=== PATIENT | female | born 1930 | race Caucasian/White ===

== ENCOUNTER → 2016-10-15 | Outpatient (CLI) | payer MEDICARE, OTHER ==
[2016-10-15 14:09] LABS: BASOPHILS % (AUTO) 0.4 % (0.0-2.0); EOSINOPHILS % (AUTO) 4.7 % (1.0-6.0); HEMATOCRIT 37.1 % (36-46); HEMOGLOBIN 12.6 g/dL (12.0-16.0); LYMPHOCYTES # (AUTO) 2.4 K/uL (1.0-4.8); LYMPHOCYTES % (AUTO) 25.1 % (22.0-44.0); MEAN CORPUSCULAR HEMOGLOBIN 28.2 pg (26.0-34.0); MEAN CORPUSCULAR VOLUME 83 fL (80-100); MONOCYTES # (AUTO) 0.9 K/uL (0.1-1.0); MONOCYTES % (AUTO) 9.6 % (2.0-9.0); NEUTROPHILS # (AUTO) 5.7 K/uL (1.8-7.7); NEUTROPHILS % (AUTO) 60.2 % (40.0-70.0); PLATELET COUNT (AUTO) 358 K/uL (150-450); RED BLOOD CELL COUNT(AUTO) 4.47 MIL/uL (4.00-5.20); RED CELL DISTRIBUTION WIDTH 14.3 % (11.5-14.5); WHITE BLOOD COUNT (AUTO) 9.5 K/uL (4.5-11.0)
[2016-10-15 14:10] LABS: CREATININE 1.06 mg/dL (0.60-1.30)
[2016-10-15 14:12] LABS: APPEARANCE,URINE CLOUDY (CLEAR); GLUCOSE, URINE (UA) NEGATIVE (NEGATIVE); KETONES,URINE NEGATIVE (NEGATIVE); OCCULT BLOOD,URINE NEGATIVE (NEGATIVE); PH,URINE 6.5 (5.0-8.0); PROTEIN,URINE NEGATIVE (NEGATIVE)
[2016-10-15 14:17] LABS: ADD UA MICROSCOPIC YES; LEUKOCYTE ESTERASE ,URINE SMALL (NEGATIVE); RBC,URINE 0-2 /HPF (0-2); RENAL EPITHELIAL CELLS,URINE Few /LPF (None Seen); SQUAMOUS EPITHELIAL CELL,UR Few /LPF (None Seen)
[2016-10-15 14:18] LABS: INR 0.9 (0.9-1.1)
== END | disposition home or self-care (01) ==
LOC: MSR 12:54
DX: M20.12 Hallux valgus (acquired), left foot (principal); M20.11 Hallux valgus (acquired), right foot; M20.42 Other hammer toe(s) (acquired), left foot; M20.41 Other hammer toe(s) (acquired), right foot; Z79.01 Long term (current) use of anticoagulants
CPT/HCPCS: 82565; 84520; 93005

== ENCOUNTER 2016-10-22 05:41 | Day surgery (SDC) | payer MEDICARE, OTHER ==
[~2016-10-22] VITALS: Ht 142.2 cm; Wt 55.9 kg
[~2016-10-22 05:41] MED LIST: AMLO-512 PO; ASPI-1093 PO; ATEN50TA PO; MULT-248 PO; OMEG100019 PO; OMEP20 PO; PRAV40 PO; TELM1TAB6 PO
[2016-10-22] MEDS ORDERED: RINGERS SOLUTION,LACTATED 1,000 ML IV ONE ×2 (05:43→06:00)
[2016-10-22] MEDS ORDERED: POVIDONE-IODINE 30 GM OINTMENT TP ONE (06:44)
[2016-10-22] MEDS ORDERED: LIDOCAINE HCL/PF 2% 5 ML VIAL ONE (06:44)
[2016-10-22] MEDS ORDERED: BUPIVACAINE HCL/PF 0.5% 30 ML VIAL ONE (06:45)
[2016-10-22] MEDS ORDERED: SODIUM CHLORIDE 0.9% 1,000 ML IV ONE (08:10)
[2016-10-22] MEDS ORDERED: MEPERIDINE-PF 25 MG/ML SYRINGE IVP PRN (08:15)
[2016-10-22] MEDS ORDERED: FentaNYL CITRATE-PF 100 MCG/2 ML VIAL IVP PRN (08:15)
[2016-10-22] MEDS ORDERED: HYDROmorphone 2 MG/ML SYRINGE IVP PRN (08:15)
[2016-10-22] MEDS ORDERED: OXYGEN THERAPY IH SCH (08:15)
[2016-10-22] MEDS ORDERED: GLYCOPYRROLATE 0.2 MG/ML VIAL IM ONE (12:00)
[2016-10-22] MEDS ORDERED: METOCLOPRAMIDE HCL 5 MG/ML 2 ML VIAL IVP ONE (12:00)
[2016-10-22] MEDS ORDERED: PROPOFOL 1% 20 ML VIAL IVP ONE (12:00)
[2016-10-22] MEDS ORDERED: ONDANSETRON HCL 4 MG/2 ML VIAL IVP ONE (12:00)
[2016-10-22] MEDS ORDERED: MIDAZOLAM HCL 2 MG/2 ML VIAL IVP ONE (12:00)
[2016-10-22] MEDS ORDERED: KETAMINE HCL 50 MG/ML 10 ML VIAL IVP ONE (12:00)
[2016-10-22] MEDS ORDERED: DEXAMETHASONE SOD PHOS 4 MG/ML VIAL IVP ONE (12:00)
[2016-10-22] MEDS ORDERED: FentaNYL CITRATE-PF 100 MCG/2 ML VIAL IVP ONE (12:00)
== END 2016-10-22 10:35 | disposition home or self-care (01) ==
LOC: SURGERY 05:41
DX: M20.41 Other hammer toe(s) (acquired), right foot (principal); M24.674 Ankylosis, right foot; M54.32 Sciatica, left side; M19.90 Unspecified osteoarthritis, unspecified site; I10 Essential (primary) hypertension; F17.210 Nicotine dependence, cigarettes, uncomplicated; Z72.89 Other problems related to lifestyle; Z90.710 Acquired absence of both cervix and uterus; Z88.2 Allergy status to sulfonamides; Z88.8 Allergy status to other drugs, medicaments and biological substances; Z87.59 Personal history of other complications of pregnancy, childbirth and the puerperium
CPT/HCPCS: 28285; 73630; 88305; 88311; 93005; J0690; J1100; J2250; J2405; J2704; J2765; J3010; J3490 ×4; J7030; J7120